=== PATIENT | female | born 1980 | race Caucasian/White ===

== ENCOUNTER 2019-09-26 16:58 | Emergency (ER) | payer OTHER ==
[2019-09-26] MEDS ORDERED: Sodium Chloride 0.9% 1,000 ML IV SCH (17:15)
[2019-09-26] MEDS ORDERED: HYDROmorphone 1 MG/ML Syringe IVPUSH ONE (17:17)
[2019-09-26] MEDS: Sodium Chloride 0.9% 10 ML Syringe FLUSH PRN ×2 (17:47→19:25)
--- NOTE | 2019-09-26 18:35 | EDM.PDOC ---
ED HPI GENERAL MEDICAL PROBLEM - General Chief Complaint: Back Pain or Injury Stated Complaint: [facility] Time Seen by Provider: 09/26/19 17:07 Source of Information: Reports: Patient, Provider History Limitations: Reports: No Limitations - History of Present Illness INITIAL COMMENTS - FREE TEXT/NARRATIVE: The patient presents with right upper back pain that radiates to her right chest. This started after she had a nerve stimulator put in her back July 09. This was done by Dr Tillman at [facility] in [place]. The patient' s original back pain is better but now she has this new pain. She has been dealing with this pain for months and she is getting exhausted from it. She has no fever, chills, cough, congestion, shortness of breath, abdominal pain or vomiting. She says at times she will get nausea because of the pain. Onset: Gradual Duration: Week(s): Location: Reports: Chest, Back Quality: Reports: Sharp Severity: Severe Improves with: Reports: None Worsens with: Reports: None Associated Symptoms: Reports: Chest Pain. Denies: Fever/Chills, Headaches, Nausea/Vomiting, Shortness of Breath Right Upper Back Pain Score (Numeric/FACES): 10 - Related Data Allergies Allergy/AdvReac Type Severity Reaction Status Date / Time No Known Allergies Allergy Verified 09/26/19 17:50 Home Meds: Home Meds oxyCODONE HCl/Acetaminophen [Percocet 5-325 mg Tablet] 1 - 2 each PO Q6HR PRN # 20 tablet 09/26/19 [Rx] ED ROS GENERAL - Review of Systems Review Of Systems: See Below Constitutional: Reports: No Symptoms HEENT: Reports: No Symptoms Respiratory: Reports: No Symptoms Cardiovascular: Reports: No Symptoms Endocrine: Reports: No Symptoms GI/Abdominal: Reports: Nausea. Denies: Abdominal Pain, Vomiting : Reports: No Symptoms Musculoskeletal: Reports: Back Pain (Right upper back) ED EXAM, UPPER BACK/NECK PAIN - Physical Exam Exam: See Below Exam Limited By: No Limitations General Appearance: Alert, Mild Distress Ears Exam: Normal External Exam Nose Exam: Normal Inspection Head Exam: Atraumatic, Normocephalic Cardiovascular/Respiratory: Regular Rate, Rhythm, No M/R/G, Normal Breath Sounds , No Respiratory Distress GI/Abdominal: Soft, Non-Tender, No Organomegaly, No Mass Back Exam: Normal Inspection Extremities: Normal Inspection EKG INTERPRETATION EKG Date: 09/26/19 Time: 17:27 Rhythm: NSR Rate (Beats/Min): 81 [place]: Normal P-Wave: Present QRS: Normal ST-T: Other (Flipped T waves in the anterior leads) QT: Normal Course - Vital Signs Last Recorded V/S: Last Vital Signs Temp 98.2 F 09/26/19 17:07 Pulse 93 09/26/19 17:07 Resp 18 09/26/19 17:07 BP 159/106 H 09/26/19 17:07 Pulse Ox 100 09/26/19 17:07 - Orders/Labs/Meds Orders: Active Orders 24 hr Category Date Time Status Cardiac Monitoring [RC] . DIRECTED Care 09/26/19 17:15 Active EKG Documentation Completion [RC] STAT Care 09/26/19 17:16 Active Peripheral IV Care [RC] . DIRECTED Care 09/26/19 17:16 Active HYDROmorphone [Dilaudid] Med 09/26/19 20:11 Once 0.5 mg IVPUSH ONETIME ONE Sodium Chloride 0.9% [Normal Saline] 1,000 ml Med 09/26/19 17:15 Active IV ASDIRECTED Sodium Chloride 0.9% [Normal Saline] 100 ml Med 09/26/19 19:00 Active IV ASDIRECTED Sodium Chloride 0.9% [Saline Flush] Med 09/26/19 17:15 Active 10 ml FLUSH ASDIRECTED PRN Peripheral IV Insertion Adult [OM.PC] Stat Oth 09/26/19 17:15 Ordered Medication Orders Sodium Chloride (Normal Saline) 1,000 mls @ 125 mls/hr IV ASDIRECTED ZARIA Last Admin: 09/26/19 17:47 Dose: 125 mls/hr Sodium Chloride (Normal Saline) 100 mls @ 75 mls/hr IV ASDIRECTED ZARIA Last Admin: 09/26/19 19:25 Dose: 75 mls/hr Sodium Chloride (Saline Flush) 10 ml FLUSH ASDIRECTED PRN PRN Reason: Keep Vein Open Last Admin: 09/26/19 19:25 Dose: 10 ml Admin: 09/26/19 17:47 Dose: 10 ml Labs: Laboratory Tests 09/26/19 09/26/19 Range/Units 17:50 17:50 WBC 10.16 H (3.98-10.04) K/mm3 RBC 4.91 (3.98-5.22) M/mm3 Hgb 16.1 H (11.2-15.7) gm/dl Hct 47.2 H (34.1-44.9) % MCV 96.1 H (79.4-94.8) fl MCH 32.8 H (25.6-32.2) pg MCHC 34.1 (32.2-35.5) g/dl RDW Std Deviation 48.9 H (36.4-46.3) fL Plt Count 195 (182-369) K/mm3 MPV 11.0 (9.4-12.3) fl Neut % (Auto) 56.0 (34.0-71.1) % Lymph % (Auto) 32.7 (19.3-51.7) % [place] % (Auto) 8.0 (4.7-12.5) % Eos % (Auto) 2.6 (0.7-5.8) Baso % (Auto) 0.4 (0.1-1.2) % Neut # (Auto) 5.70 (1.56-6.13) K/mm3 Lymph # (Auto) 3.32 (1.18-3.74) K/mm3 [place] # (Auto) 0.81 H (0.24-0.36) K/mm3 Eos # (Auto) 0.26 (0.04-0.36) K/mm3 Baso # (Auto) 0.04 (0.01-0.08) K/mm3 Manual Slide Review Normal smear Sodium 135 L (136-145) mEq/L Potassium 3.6 (3.5-5.1) mEq/L Chloride 101 (98-107) mEq/L Carbon Dioxide 25 (21-32) mEq/L Anion Gap 12.6 (5-15) BUN 13 (7-18) mg/dL Creatinine 1.1 H (0.55-1.02) mg/dL Est Cr Clr Drug Dosing 58.12 mL/min Estimated GFR (MDRD) 55 (>60) mL/min BUN/Creatinine Ratio 11.8 L (14-18) Glucose 95 (74-106) mg/dL Calcium 9.4 (8.5-10.1) mg/dL Total Bilirubin 0.2 (0.2-1.0) mg/dL AST 15 (15-37) U/L ALT 25 (14-59) U/L Alkaline Phosphatase 74 (46-116) U/L Troponin I < 0.017 (0.00-0.056) ng/mL Total Protein 7.5 (6.4-8.2) g/dl Albumin 3.8 (3.4-5.0) g/dl Globulin 3.7 gm/dL Albumin/Globulin Ratio 1.0 (1-2) Meds: Medications Generic Name Dose Route Start Last Admin Trade Name Freq PRN Reason Stop Dose Admin Sodium Chloride 1,000 mls @ 125 mls/hr 09/26/19 17:15 09/26/19 17:47 Normal Saline IV 125 mls/hr ASDIRECTED ZARIA Administration Sodium Chloride 100 mls @ 75 mls/hr 09/26/19 19:00 09/26/19 19:25 Normal Saline IV 75 mls/hr ASDIRECTED ZARIA Administration Sodium Chloride 10 ml 09/26/19 17:15 09/26/19 19:25 Saline Flush FLUSH 10 ml ASDIRECTED PRN Administration Keep Vein Open Discontinued Medications Generic Name Dose Route Start Last Admin Trade Name Freq PRN Reason Stop Dose Admin Hydromorphone HCl 1 mg 09/26/19 17:17 09/26/19 17:47 Dilaudid IVPUSH 09/26/19 17:18 1 mg ONETIME ONE Administration Iopamidol 100 ml 09/26/19 18:58 09/26/19 19:25 Isovue-370 (76%) IVPUSH 09/26/19 18:59 100 ml ONETIME ONE Administration - Re-Assessments/Exams Free Text/Narrative Re-Assessment/Exam: 09/26/19 18:35 I ordered an IV NS, labs, EKG, chest CT and dilaudid 1mg IV. 09/26/19 19:24 Her WBC is 10.6. Her Na is a little low at 135. I am waiting for the CT now. 09/26/19 20:[address] shows no PE and nothing acute. 09/26/19 20:11 I will get her on something for pain. Departure - Departure Time of Disposition: 20:15 Disposition: Home, Self-Care 01 Condition: Good Clinical Impression: Back pain Qualifiers: Back pain location: thoracic back pain Chronicity: chronic Back pain laterality : right Qualified Code(s): M54.6 - Pain in thoracic spine; G89.29 - Other chronic pain Chest pain Qualifiers: Chest pain type: unspecified Qualified Code(s): R07.9 - Chest pain, unspecified - Discharge Information *PRESCRIPTION DRUG MONITORING PROGRAM REVIEWED*: No *COPY OF PRESCRIPTION DRUG MONITORING REPORT IN PATIENT PEDRO: No Prescriptions: oxyCODONE HCl/Acetaminophen [Percocet 5-325 mg Tablet] 1 - 2 each PO Q6HR PRN # 20 tablet PRN Reason: Pain Referrals: Divina Watson MD [Primary Care Provider] - 1 Week Forms: ED Department Discharge Additional Instructions: Take the percocet as prescribed. Follow up with your doctor. Please return if you are worse. Sepsis Event Note - Evaluation Sepsis Screening Result: No Definite Risk - Focused Exam Vital Signs: Vital Signs Temp Pulse Resp BP Pulse Ox 09/26/19 17:07 98.2 F 93 18 159/106 H 100 Date Exam was Performed: 09/26/19 Time Exam was Performed: 20:11 - My Orders Last 24 Hours: My Active Orders 09/26/19 17:15 Cardiac Monitoring [RC] . DIRECTED Sodium Chloride 0.9% [Normal Saline] 1,000 ml IV ASDIRECTED Sodium Chloride 0.9% [Saline Flush] 10 ml FLUSH ASDIRECTED PRN Peripheral IV Insertion Adult [OM.PC] Stat 09/26/19 17:16 EKG Documentation Completion [RC] STAT Peripheral IV Care [RC] . DIRECTED 09/26/19 19:00 Sodium Chloride 0.9% [Normal Saline] 100 ml IV ASDIRECTED 09/26/19 20:11 HYDROmorphone [Dilaudid] 0.5 mg IVPUSH ONETIME ONE - Assessment/Plan Last 24 Hours: My Active Orders 09/26/19 17:15 Cardiac Monitoring [RC] . DIRECTED Sodium Chloride 0.9% [Normal Saline] 1,000 ml IV ASDIRECTED Sodium Chloride 0.9% [Saline Flush] 10 ml FLUSH ASDIRECTED PRN Peripheral IV Insertion Adult [OM.PC] Stat 09/26/19 17:16 EKG Documentation Completion [RC] STAT Peripheral IV Care [RC] . DIRECTED 09/26/19 19:00 Sodium Chloride 0.9% [Normal Saline] 100 ml IV ASDIRECTED 09/26/19 20:11 HYDROmorphone [Dilaudid] 0.5 mg IVPUSH ONETIME ONE
[2019-09-26] MEDS ORDERED: Iopamidol 755 Mg/ML 100 ML Bottle IVPUSH ONE (18:58)
[2019-09-26] MEDS ORDERED: Sodium Chloride 0.9% 100 ML IV SCH (19:00)
--- NOTE | 2019-09-26 20:03 | CT ---
CT chest Technique: Multiple axial sections through the chest were obtained. Intravenous contrast was not utilized. Study has been performed as a pulmonary angiogram protocol. Findings: Pulmonary arteries are well opacified. No filling defects are seen to indicate pulmonary embolism. Mediastinum and hilar regions appear unremarkable. No pericardial thickening is seen. Visualized portions of the upper abdominal structures shows no discrete abnormality. Lungs show no acute parenchymal change. No pleural effusions are seen. Spinal electro-stimulating electrodes are seen. No acute osseous finding is seen. Impression: 1. No findings of pulmonary embolism. 2. Nothing acute is appreciated on CT study of the chest. Diagnostic code #2 This report was dictated in [place] Standard Time
[2019-09-26] MEDS ORDERED: HYDROmorphone 0.5 MG/0.5 ML Syringe IVPUSH ONE (20:11)
== END 2019-09-26 20:32 | disposition home or self-care (01) ==
LOC: JD.ED 16:58
DX: M54.6 Pain in thoracic spine (principal); G89.29 Other chronic pain; R07.9 Chest pain, unspecified
CPT/HCPCS: 36415; 71275; 80053; 84484; 85025; 93005; 96361; 96374; 96376; 99284; J1170; J7030; J7050; Q9967; 93010

== ENCOUNTER 2020-07-16 15:01 | Emergency (ER) | payer OTHER ==
--- NOTE | 2020-07-16 17:26 | EDM.PDOC ---
ED HPI GENERAL MEDICAL PROBLEM - General Chief Complaint: Flank Pain Stated Complaint: [facility] Time Seen by Provider: 07/16/20 15:19 Source of Information: Reports: Patient, RN Notes Reviewed - History of Present Illness INITIAL COMMENTS - FREE TEXT/NARRATIVE: 40 yr old female with L back and flank pain. Feels worse to move, better to lie still. No voiding sx. No nausea or vomting. No fever or chills. Left Flank Pain Score (Numeric/FACES): 10 - Related Data Allergies Allergy/AdvReac Type Severity Reaction Status Date / Time No Known Allergies Allergy Verified 07/16/20 15:22 Home Meds: Home Meds oxyCODONE HCl/Acetaminophen [Percocet 5-325 mg Tablet] 1 - 2 each PO Q6HR PRN #20 tablet 09/26/19 [Rx] Acetaminophen/HYDROcodone [Olar 325-5 MG] 1 tab PO Q6H PRN #14 tablet 07/16/20 [Rx] Cyclobenzaprine [Flexeril] 5 mg PO TID PRN #14 tab 07/16/20 [Rx] Past Medical History Musculoskeletal History: Reports: Back Pain, Chronic Other Musculoskeletal History: neurostimulator placed 06/2019 Social & Family History - Tobacco Use Tobacco Use Status *Q: Current Every Day Tobacco User Years of Tobacco use: 20 Packs/Tins Daily: 1 Second Hand Smoke Exposure: No - Caffeine Use Caffeine Use: Reports: Energy Drinks, Soda - Recreational Drug Use Recreational Drug Use: No ED ROS GENERAL - Review of Systems Review Of Systems: See Below Constitutional: Denies: Fever, Chills HEENT: Reports: No Symptoms Respiratory: Denies: Shortness of Breath Cardiovascular: Denies: Chest Pain GI/Abdominal: Reports: Abdominal Pain (L flank pain). Denies: Diarrhea, Nausea, Vomiting : Reports: No Symptoms Musculoskeletal: Reports: Back Pain Neurological: Reports: No Symptoms ED EXAM,LOWER BACK PAIN/INJURY - Physical Exam Exam: See Below General Appearance: Alert, Mild Distress Head: Atraumatic Neck: Supple Respiratory/Chest: No Respiratory Distress, Lungs Clear, Normal Breath Sounds Cardiovascular: Regular Rate, Rhythm GI/Abdominal: Soft, Non-Tender Back Exam: Other (Tender L flank and L low back) Extremities: Normal Inspection, Normal Range of Motion Neurological: Alert, No Motor/Sensory Deficits Skin Exam: Warm, Dry, Normal Color Course - Vital Signs Last Recorded V/S: Last Vital Signs Temp 98.0 F 07/16/20 15:19 Pulse 80 07/16/20 15:19 Resp 20 07/16/20 15:19 BP 137/97 H 07/16/20 15:19 Pulse Ox 98 07/16/20 15:19 - Orders/Labs/Meds Orders: Active Orders 24 hr Category Date Time Status CULTURE URINE [RM] Stat Lab 07/16/20 16:00 Results Labs: Laboratory Tests 07/16/20 Range/Units 16:03 Urine Color Yellow (Yellow) Urine Appearance Clear (Clear) Urine pH 6.0 (5.0-8.0) Ur Specific [place] > or = 1.030 (1.005-1.030) Urine Protein Negative (Negative) Urine Glucose (UA) Negative (Negative) Urine Ketones Negative (Negative) Urine Occult Blood 2+ H (Negative) Urine Nitrite Negative (Negative) Urine Bilirubin Negative (Negative) Urine Urobilinogen 0.2 (0.2-1.0) Ur Leukocyte Esterase Negative (Negative) Urine RBC 0-5 (0-5) /hpf Urine WBC 0-5 (0-5) /hpf Ur Squamous Epith Cells 5-10 H (0-5) /hpf Urine Bacteria Moderate H (FEW) /hpf Urine Mucus Moderate H (FEW) /hpf - Re-Assessments/Exams Free Text/Narrative Re-Assessment/Exam: 07/17/20 14:28 Ua does show some bacteria but dipstick neg. Have cultured urine, will not start on abx at this time, low liklihood for UTI. Departure - Departure Time of Disposition: 17:21 Disposition: Home, Self-Care 01 Condition: Fair Clinical Impression: Back pain Qualifiers: Back pain location: low back pain Chronicity: acute Back pain laterality: left Sciatica presence: without sciatica Qualified Code(s): M54.5 - Low back pain - Discharge Information Prescriptions: Cyclobenzaprine [Flexeril] 5 mg PO TID PRN #14 tab PRN Reason: Spasms Acetaminophen/HYDROcodone [Olar 325-5 MG] 1 tab PO Q6H PRN #14 tablet PRN Reason: Pain Instructions: Acute Back Pain, Adult Referrals: Rosi Bray [employer] [Primary Care Provider] - Forms: ED Department Discharge Additional Instructions: Rest back, no heavy lifting. Alternate ice and heat. Continue motrin or ibuprofen 600 mg daily 3 to 4 times daily. Tylenol in between doses 3 to 4 to times daily or hydrocodone if needed for severe pain. Flexeril 5 mg up to 3 times daily if needed for muscle spasm. Prescription has been sent to [facility] at the [email or web address] [facility]. A urine culture has been done to R/O UTI. See your regular medical provider if not much better within 3 to 4 days. Sepsis Event Note (ED) - Evaluation Sepsis Screening Result: No Definite Risk - My Orders Last 24 Hours: My Active Orders 07/16/20 16:00 CULTURE URINE [RM] Stat - Assessment/Plan Last 24 Hours: My Active Orders 07/16/20 16:00 CULTURE URINE [RM] Stat
== END 2020-07-16 17:38 | disposition home or self-care (01) ==
LOC: JD.ED 15:01
DX: M54.5 Low back pain (principal); F17.210 Nicotine dependence, cigarettes, uncomplicated
CPT/HCPCS: 81001; 87086; 99283; 99284